=== PATIENT | male | born 1995 | race American Indian/Alaskan Native ===

== ENCOUNTER 2018-05-14 09:39 | Emergency (ER) | payer SELFPAY ==
[2018-05-14 11:36] VITALS: BP 137/80
[2018-05-14] MEDS ORDERED: IBUPROFEN PO ONE (11:47)
[2018-05-14] MEDS ORDERED: FLEXERIL PO ONE (11:47)
--- NOTE | 2018-05-14 12:04 | Emergency Department Report ---
ED Back Pain/Injury HPI - General Chief Complaint: Back Pain/Injury Stated Complaint: BACK PAIN AND KNEE PAIN Time Seen by Provider: 05/14/18 11:35 Source: patient Limitations: No Limitations - History of Present Illness Initial Comments: 22-year-old homeless male with no significant past medical history presents to the hospital complaining of ongoing bilateral knee and back pain. Symptoms 2 months. No recent injury reported. Patient has a history of left knee surgery secondary to patella and anterior cruciate ligament injury. Patient denies urinary incontinence, lower extremity numbness or weakness, or fever. Pain is 7/10 in intensity and worse with movement and ambulation. - Related Data Previous Rx's Medication Instructions Recorded Last Taken Type Cyclobenzaprine [Flexeril] 10 mg PO TID PRN #30 tablet 05/14/18 Unknown Rx Ibuprofen [Motrin] 800 mg PO Q8HR PRN #30 tablet 05/14/18 Unknown Rx Allergies Allergy/AdvReac Type Severity Reaction Status Date / Time No Known Allergies Allergy Unverified 05/14/18 10:00 ED Review of Systems ROS: Stated complaint: BACK PAIN AND KNEE PAIN Other details as noted in HPI Comment: All other systems reviewed and negative ED Past Medical Hx - Past Medical History Previous Medical History?: No - Surgical History Past Surgical History?: Yes Additional Surgical History: Left knee surgery - Social History Smoking Status: Current Some Day Smoker Substance Use Type: None - Medications Home Medications: Home Medications Medication Instructions Recorded Confirmed Last Taken Type Cyclobenzaprine [Flexeril] 10 mg PO TID PRN #30 tablet 05/14/18 Unknown Rx Ibuprofen [Motrin] 800 mg PO Q8HR PRN #30 tablet 05/14/18 Unknown Rx ED Physical Exam - General Limitations: No Limitations - Other Other exam information: General: No limitations, patient is alert in no acute distress Head exam: Atraumatic, normocephalic Eyes exam: Normal appearance ENT: Moist mucous membrane Neck exam: Normal inspection, full range of motion, no meningismus nontender Respiratory exam: Clear to auscultation bilateral, no wheezes, rales, crackles Cardiovascular: Normal rate and rhythm, normal heart sounds Abdomen: Soft, nondistended, and nontender, with normal bowel sounds, no rebound, or guarding Extremity: Full range of motion, left anterior knee surgical scar noted. No swelling, deformity, no focal knee tenderness bilaterally. Back: Normal Inspection, full range of motion, generalized lumbar tenderness Neurologic: Alert, oriented x3, cranial nerves intact, no motor or sensory deficit Psychiatric: normal affect, normal mood Skin: Warm, dry, intact ED Course Vital Signs 05/14/18 11:16 Temperature 97.7 F Pulse Rate 71 Respiratory 18 Rate Blood Pressure 137/80 [Right] O2 Sat by Pulse 100 Oximetry ED Medical Decision Making - Medical Decision Making Patient had muscular skeletal pain without acute injury to suggest fracture. Patient treated symptomatically for pain and encouraged to follow up with PMD. - Differential Diagnosis arthritis, arthralgias, chronic pain, radiculopathy Critical Care Time: No Critical care attestation.: If time is entered above; I have spent that time in minutes in the direct care of this critically ill patient, excluding procedure time. ED Disposition Clinical Impression: Back pain, Bilateral knee pain, History of left knee surgery Disposition: TO HOME OR SELFCARE Is pt being admited?: No Does the pt Need Aspirin: No Condition: Stable Instructions: Back Pain (ED), Knee Pain (ED) Additional Instructions: Take the medication as prescribed. Follow up with your doctor or the clinic/doctor provided. Return if symptoms worsen as indicated by your discha rge instructions Prescriptions: Cyclobenzaprine [Flexeril] 10 mg PO TID PRN #30 tablet PRN Reason: Muscle Spasm Ibuprofen [Motrin] 800 mg PO Q8HR PRN #30 tablet PRN Reason: Pain , Severe (7-10) Referrals: SHAJI SANCHEZ [Primary Care Provider] - 3-5 Days [facility] [Provider Group] - 3-5 Days CARINA INIGUEZ MD [Staff Physician] - 3-5 Days Time of Disposition: 12:03
== END 2018-05-14 12:51 | disposition home or self-care (01) ==
LOC: ED 09:39
DX: M25.562 Pain in left knee (principal); M25.561 Pain in right knee; M54.9 Dorsalgia, unspecified; F17.200 Nicotine dependence, unspecified, uncomplicated; Z98.890 Other specified postprocedural states
CPT/HCPCS: 99282